=== PATIENT | male | born 1955 | race Caucasian/White ===

== ENCOUNTER 2018-03-02 12:02 | Inpatient (IN) ==
[2018-03-02] MEDS ORDERED: DILTIAZEM 125 MG in DEXTROSE 5% IN WATER 100 ML IV SCH (12:08)
[2018-03-02] MEDS ORDERED: DILTIAZEM 25 MG/5 ML VIAL IV ONE ×2 (12:08→12:35)
--- NOTE | 2018-03-02 12:15 | Emergency Department Note ---
Arrhythmia/Palpitations HPI - General Chief Complaint: Arrhythmia/Palpitations Stated Complaint: A-flutter Time Seen by Provider: 03/02/18 12:06 Source: patient Mode of arrival: ambulatory Limitations: no limitations - History of Present Illness HPI Narrative: Patient was having an intrathecal injection at the pain clinic for back pain when his heart rate was elevated at 155. Steroid injection was already given. When his heart rate increased. 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 Barroso who states that he read the EKG as A flutter.2:1 patient himself states he has had A. fib in the past but he is on no blood thinners or medications for it patient states he is having few symptoms but having some palpitations. Denies any chest pain. Denies shortness of breath. States that he had a history of what he calls A. fib over the past 2 years and was related somewhat to coffee intake he does not take any blood thinners is not on any aspirin daily.Temperature is 98.4 the pulse is 155 the respirations are 18 blood pressure 187/105 pulse ox is 96% on room air. Patient denying any chest pain - Related Data Home Medications Medication Instructions Recorded Confirmed Losartan [Cozaar] 100 mg PO QHS 02/15/18 02/15/18 amLODIPine [Norvasc] 5 mg PO DAILY 02/15/18 02/15/18 Previous Rx's Medication Instructions Recorded Cyclobenzaprine [Flexeril] 10 mg PO TID #20 tab 02/15/18 HYDROcodone/APAP 5/325MG [[place] 1 tab PO Q4HP PRN #20 tab 02/15/18 5-325Mg] Methocarbamol [Robaxin] 1,500 mg PO QIDP PRN 13 Days #84 02/23/18 tab Allergies Allergy/AdvReac Type Severity Reaction Status Date / Time No Known Drug Allergies Allergy Verified 03/02/18 12:07 Review of Systems All systems ED: reviewed and negative except as stated. Cardiovascular: Reports: as per HPI, palpitations. Denies: chest pain, dyspnea on exertion, orthopnea Respiratory: Denies: shortness of breath, cough Past Medical History - Past Medical History Medical history: Reports: hypertension, other (Rheumatic fever) Surgical history ED: Reports: other ([place] teeth) Family history: Reports: non-contributory - Social History smoking status: Never smoker Alcohol use: Reports: Occasionally (Wine) Drug use: Reports: none Physical Exam Limitations: no limitations General appearance: alert, anxious Head: atraumatic Eye: Present: normal appearance, PERRL ENT: normal exam, normal oropharynx, mucous membranes moist Neck: Present: normal inspection, full ROM. Absent: trachea midline Chest: Present: normal inspection, symmetric chest wall rise. Absent: tenderness Respiratory: Present: normal lung sounds bilaterally. Absent: respiratory distress, rales/crackles, wheezes Cardiovascular: Present: regular rate, normal rhythm, tachycardia Abdominal: Present: soft, normal bowel sounds. Absent: distention, tenderness, guarding, rebound, rigidity Extremities: Present: normal inspection, full ROM. Absent: tenderness Back: Present: normal inspection, full ROM. Absent: tenderness Neurological: Present: alert, oriented X3, CN II-XII intact Psychiatric: Present: normal affect, normal mood Course Vital Signs Temperature 98.4 F 03/02/18 12:03 Pulse Rate 155 H 03/02/18 12:03 Respiratory Rate 18 03/02/18 12:03 Blood Pressure 187/105 03/02/18 12:03 Pulse Oximetry (%) 96 03/02/18 12:03 Temperature 98.4 F 03/02/18 12:03 Pulse Rate 146 H 03/02/18 15:16 Respiratory Rate 20 03/02/18 15:16 Blood Pressure 119/87 03/02/18 15:16 Pulse Oximetry (%) 89 L 03/02/18 15:16 Arrhythmia/Palpitations - [facility] Narrative Medical decision making narrative: Sodium is 137 the potassium 4.5 CO2 is 20 glucose 107B fraction is less than 0.1 troponin less than 0.01 SH is 2.58 chest x-ray was normal EKG shows cardia and previous EKG shows atrial flutter 2-1 block. Patient not responsive Dital exam given 20 bolus initially with drip and then 25 mg along with the titration. And then given metoprolol x3 with some results of the heart rate going down to 120s but it is back up to the running in the 140s. Case was discussed with Dr. Barroso felt the patient to be admitted further slow the heart rate down to Dr. Meza contacted patient to be admitted - Lab Data Result diagrams: 03/02/18 12:43 12/12/18 12:35 Lab Results 03/02/1818 03/02/18 Range/Units 12:35 12:43 12:43 WBC 13.9 H (4.5-11.0) K/mcL RBC 4.66 (4.50-5.90) M/mcL Hgb 13.4 L (13.5-16.5) g/dL Hct 40.8 L (41.0-55.0) % POC Hct MCV 87.5 (80.0-100.0) fL MCH 28.7 (26.0-34.0) pg MCHC 32.8 (31.0-36.0) g/dL RDW 15.9 H (11.5-14.5) % Plt Count 588 H (140-440) K/mcL MPV 8.2 (7.4-10.4) fL Gran % 81.2 H (38.0-78.0) % Lymph % (Auto) 9.3 L (15.5-49.0) % [place] % (Auto) 8.3 (1.0-12.0) % Eos % (Auto) 0.5 (0.0-7.0) % Baso % (Auto) 0.7 (0.0-2.0) % Gran # 11.3 H (1.8-8.0) K/mcL Lymph # (Auto) 1.3 L (1.5-4.8) K/mcL [place] # (Auto) 1.2 H (0.1-0.9) K/mcL Eos # (Auto) 0.1 (0.0-0.7) K/mcL Baso # (Auto) 0.1 (0.0-0.3) K/mcL PT 14.5 (11.9-14.5) sec INR 1.1 (0.9-1.1) POC Sodium Sodium 137 (133-145) mmol/L POC Potassium Potassium 4.5 (3.3-5.1) mmol/L POC Chloride Chloride 99 (96-108) mmol/L Carbon Dioxide 20 L (22-30) mmol/L POC Total CO2 Anion Gap 18.0 H (8-16) POC BUN BUN 20 (8-23) mg/dl Creatinine 0.9 (0.7-1.2) mg/dl POC Creatinine GFR Calculation 91 Glucose 107 H (70-105) mg/dL POC Glucose Calcium 10.3 (8.6-10.4) mg/dl POC WB Ioniz Calcium Total Bilirubin 0.2 (0.0-1.0) mg/dL AST 15 (0-37) U/l ALT 29 (0-40) U/l Alkaline Phosphatase 79 (39-117) U/L Total Creatine Kinase (24-195) IU/L CK-MB (CK-2) (0-4.9) ng/ml Troponin T (0-0.03) ng/ml Total Protein 8.2 (5.9-8.4) gm/dL Albumin 3.8 (3.2-5.2) gm/dL Globulin 4.4 H (2.2-3.7) gm/dL Albumin/Globulin Ratio 0.9 L (1.0-2.3) TSH (0.27-5.01) uIU/ml 03/02/18 03/02/18 03/02/18 Range/Units 12:43 12:43 12:43 WBC (4.5-11.0) K/mcL RBC (4.50-5.90) M/mcL Hgb (13.5-16.5) g/dL Hct (41.0-55.0) % POC Hct TNP MCV (80.0-100.0) fL MCH (26.0-34.0) pg MCHC (31.0-36.0) g/dL RDW (11.5-14.5) % Plt Count (140-440) K/mcL MPV (7.4-10.4) fL Gran % (38.0-78.0) % Lymph % (Auto) (15.5-49.0) % [place] % (Auto) (1.0-12.0) % Eos % (Auto) (0.0-7.0) % Baso % (Auto) (0.0-2.0) % Gran # (1.8-8.0) K/mcL Lymph # (Auto) (1.5-4.8) K/mcL [place] # (Auto) (0.1-0.9) K/mcL Eos # (Auto) (0.0-0.7) K/mcL Baso # (Auto) (0.0-0.3) K/mcL PT (11.9-14.5) sec INR (0.9-1.1) POC Sodium TNP Sodium (133-145) mmol/L POC Potassium TNP Potassium (3.3-5.1) mmol/L POC Chloride TNP Chloride (96-108) mmol/L Carbon Dioxide (22-30) mmol/L POC Total CO2 TNP Anion Gap (8-16) POC BUN TNP BUN (8-23) mg/dl Creatinine (0.7-1.2) mg/dl POC Creatinine TNP GFR Calculation Glucose (70-105) mg/dL POC Glucose TNP Calcium (8.6-10.4) mg/dl POC WB Ioniz Calcium TNP Total Bilirubin (0.0-1.0) mg/dL AST (0-37) U/l ALT (0-40) U/l Alkaline Phosphatase (39-117) U/L Total Creatine Kinase 63 (24-195) IU/L CK-MB (CK-2) < 1.0 (0-4.9) ng/ml Troponin T < 0.01 (0-0.03) ng/ml Total Protein (5.9-8.4) gm/dL Albumin (3.2-5.2) gm/dL Globulin (2.2-3.7) gm/dL Albumin/Globulin Ratio (1.0-2.3) TSH 2.58 (0.27-5.01) uIU/ml Disposition Pt seen by [facility] [facility]/PA only: No Clinical Impression: Atrial flutter Qualifiers: Atrial flutter type: typical Qualified Code(s): I48.3 - Typical atrial flutter Disposition: Xfer As Inpt ([facility]) Condition: Fair
[2018-03-02 13:03] LABS: Basophils # (Auto) 0.1 K/mcL (0.0-0.3); Basophils % (Auto) 0.7 % (0.0-2.0); Eosinophils # (Auto) 0.1 K/mcL (0.0-0.7); Eosinophils % (Auto) 0.5 % (0.0-7.0); Granulocytes % (Auto) 81.2 % (38.0-78.0); Lymphocytes # (Auto) 1.3 K/mcL (1.5-4.8); Lymphocytes % (Auto) 9.3 % (15.5-49.0); Mean Cell Volume 87.5 fL (80.0-100.0); Mean Corpuscular HGB Conc 32.8 g/dL (31.0-36.0); Mean Corpuscular Hemoglobin 28.7 pg (26.0-34.0); Monocytes # (Auto) 1.2 K/mcL (0.1-0.9); Monocytes % (Auto) 8.3 % (1.0-12.0); Platelet Count 588 K/mcL (140-440); RBC 4.66 M/mcL (4.50-5.90); Red Cell Distribution Width 15.9 % (11.5-14.5)
--- NOTE | 2018-03-02 13:18 | XRay Report ---
CLINICAL INFORMATION: dysrhythmia COMPARISON: None. FINDINGS: The heart size, mediastinum and pulmonary vessels are unremarkable. The lungs are clear. There are no effusions. The bones and soft tissues are within normal limits. IMPRESSION: Normal chest. Interpreted and Authenticated by: Billy Glass 03/02/18
[2018-03-02] MEDS: METOPROLOL TARTRATE 5 MG/5 ML VIAL IV SCH ×6 (13:27→21:30)
[2018-03-02 13:40] LABS: Creatine Kinase 63 IU/L (24-195); Creatine Kinase MB < 1.0 ng/ml (0-4.9)
[2018-03-02 15:20] LABS: ALT/SGPT 29 U/l (0-40); Albumin 3.8 gm/dL (3.2-5.2); Albumin/Globulin Ratio 0.9 (1.0-2.3); Alkaline Phosphatase 79 U/L (39-117); Blood Urea Nitrogen 20 mg/dl (8-23)
--- NOTE | 2018-03-02 16:20 | Internal Med History&Physical ---
Medical - H&P: HPI Patient information: Note initiated : 03/02/18 at 4:15 pm Service Date, if different from initiated Date: [] Patient: Billy Bland 62 y/o M admitted on for A-Flutter. Chief Complaint: [] History of present illness: Mr. Bland is a 62 year old M with h/o HTN, was seen in the pain clinic today for steroid injection, due to acute back pain. The patient notes that he presented to the pain clinic today for a steroid injection in the back, on presentation his heart rate was noted to be elevated around 155 it was thought that this was secondary to anxiety as well as pain. Patient underwent a steroid injection and in the post procedure monitoring his heart rate was also noted to be elevated he was sent to the ER for further evaluation. He had an EKG done according to the ER provider was reviewed by Dr. Barroso and interpreted as atrial flutter with 2 is 2 1 conduction. The patient denies any acute complaints or concerns. The patient denies any chest pain shortness of breath palpitations dizziness nausea vomiting any bowel or bladder complaints. He has never been diagnosed with an irregular heartbeat before, however a few months ago in the morning after drinking coffee he did note some palpitations. The patient follows up with Dr. Barroso, he has a history of rheumatic heart disease and hypertension as per him. In the emergency room on presentation patient was afebrile temperature 98.4, heart rate 155 blood pressure 187 x 105 respirations 18 saturating 96% on room air. By the time of my evaluation patient was still tachycardic but a bit hypoxic with oxygen saturation anywhere between 90-93% on room air. EKG shows atrial flutter with 2-1 conduction. Chest x-ray was interpreted as negative. Labs show some leukocytosis WBC 13.9 hemoglobin 13 platelets 588. Sodium 137 potassium 4.5 bicarbonate 20 magnesium 2.6 creatinine 0.9 troponin is 0.01 TSH is 2.68 normal. Patient had an echocardiogram done in April 2017 which showed normal left ventricular function. According to the patient is also had a stress test done this year which is normal. All systems: reviewed and no additional remarkable complaints except as stated ( as per HPI rest negative.) Medical - H&P: PMH Medical history: HTN h/o rheumatic fever Surgical history: no major surgery Family history: reviewed and not pertinent Social history: non smoker daily etoh 2-3 glasses of wine, no drinks since back pain (2 weeks) denies recreational substance use. Medical - H&P: Meds Home Medications Medication Instructions Recorded Confirmed Type amLODIPine [Norvasc] 5 mg PO DAILY 02/15/18 03/02/18 History Acetaminophen [Tylenol] 325 mg PO Q4HP PRN 03/02/18 03/02/18 History Losartan [Cozaar] 25 mg PO DAILY 03/02/18 03/02/18 History Naproxen (Pp) [Aleve 220Mg (Pp)] 220 mg PO Q6 03/02/18 03/02/18 History traMADol [Ultram] 50 - 100 mg PO Q4HP PRN 03/02/18 03/02/18 History Allergies Allergy/AdvReac Type Severity Reaction Status Date / Time No Known Drug Allergies Allergy Verified 03/02/18 12:07 Medical - H&P: Exam - Constitutional Vitals: Temp Pulse Resp BP Pulse Ox 98.4 F 148 H 31 H 140/90 92 03/02/18 12:03 03/02/18 16:01 03/02/18 16:01 03/02/18 16:01 03/02/18 16:01 Exam: GENERAL: The patient is a well-developed, well-nourished in no apparent distress. Is alert and oriented x3. VITAL SIGNS: Reviewed and as noted elsewhere. HEENT: Head is normocephalic and atraumatic. Extraocular muscles are intact. Pupils are equal, round, and reactive to light. Nares appeared normal. Mouth appears any without lesions. Mucous membranes are moist. NECK: Normal to inspection, Supple, No lymphadenopathy or thyromegaly. LUNGS: Air entry equal on both sides, no wheezing, crackles or rhonchi noted. No accessory muscles of respiration HEART: Regular but tachcardic rate and rhythm normal, S1 and S2 heard, no Gallop , S3 or Rub Noted, No Gross murmur heard. ABDOMEN: Soft, nontender, and nondistended. Positive bowel sounds. No hepatosplenomegaly was noted. EXTREMITIES: No cyanosis, clubbing, rash, lesions or edema. NEUROLOGIC: Cranial nerves II through XII are grossly intact. Motor and Sensory System Grossly Intact PSYCHIATRIC: Normal affect, Normal Mood. Appropriate Behavior. SKIN: No ulceration or wounds noted, No jaundice, No rash noted. Medical - H&P: Reslt - Labs CBC & Chem 7: 03/02/18 12:43 03/02/18 12:35 Labs: Short CBC 03/02/18 Range/Units 12:43 WBC 13.9 H (4.5-11.0) K/mcL Hgb 13.4 L (13.5-16.5) g/dL Hct 40.8 L (41.0-55.0) % Plt Count 588 H (140-440) K/mcL BMP 03/02/18 12:35 Sodium 137 Potassium 4.5 Chloride 99 Carbon Dioxide 20 L BUN 20 Creatinine 0.9 Glucose 107 H Calcium 10.3 Cardiac Enzymes 03/02/18 03/02/18 Range/Units 12:43 12:43 Total Creatine Kinase 63 (24-195) IU/L CK-MB (CK-2) < 1.0 (0-4.9) ng/ml Troponin T < 0.01 (0-0.03) ng/ml Liver Function 03/02/18 Range/Units 12:35 Total Bilirubin 0.2 (0.0-1.0) mg/dL AST 15 (0-37) U/l ALT 29 (0-40) U/l Alkaline Phosphatase 79 (39-117) U/L Albumin 3.8 (3.2-5.2) gm/dL Medical - H&P: A/P - Narrative A/P Narrative: A/P Atrial Flutter with RVR: 2:1 conduction, On cardizem drip, will uptitrate to response. Start on oral cardizem, and use prn IV metoprolol if needed to control heart rate. If bp drops will have to consider digoxin to see if this helps with rate control. Etiology? precipitating factor? acute pain? reaction to pain meds? IV saline bolus x 1 to be given check d dimer, if high will get CTA to r/o PE HTN- On amlodipine and losartan, will hold for now, Back pain- could be contributing to rate, aggressive pain management. DVT hep sq Diet Regular Full code.
[2018-03-02] MEDS ORDERED: ACETAMINOPHEN 325 MG TABLET PO PRN (16:53)
[2018-03-02] MEDS ORDERED: NALOXONE HCL 0.4 MG/ML VIAL IV PRN (16:53)
[2018-03-02] MEDS ORDERED: 0.9 % SODIUM CHLORIDE 1,000 ML IV ONE (16:53)
[2018-03-02] MEDS ORDERED: ONDANSETRON 4 MG/2 ML VIAL IV PRN (16:53)
[2018-03-02] MEDS: DILTIAZEM 30 MG TABLET PO SCH ×2 (17:26→22:57)
[2018-03-02] MEDS ORDERED: IOPAMIDOL 100 ML BOTTLE IV ONE (18:08)
--- NOTE | 2018-03-02 18:26 | Cat Scan Report ---
CLINICAL INFORMATION: Chest pain COMPARISON: None. TECHNIQUE: 80 cc of Isovue-300 were injected intravenously. Using SmartPrep to maximize pulmonary artery opacification, 2.5 mm helical slices were obtained from the lung apices through the lung bases. Following reconstruction, 2.5 mm sagittal, coronal, and axial reformations were processed. The exam was reviewed at mediastinal, lung, and bone windows. The exam was performed using radiation dose optimization techniques including, but not limited to, automated exposure control, adjustment of the mA and/or kV according to patient size and use of iterative reconstruction technique. FINDINGS: The pulmonary arteries are normal in contour and caliber well opacified - no evidence of embolus. The thoracic aorta shows mild diffuse intimal thickening and is normal in caliber. There is no adenopathy in the mediastinal, hilar or axillary region. Heart is normal in size and configuration. Very heavy fibrofatty calcific plaque is present within the proximal and mid LAD: suspect either occlusion or subocclusive stenoses in this segment. Scattered atherosclerotic plaque seen in the remaining coronary arteries. Esophagus is grossly normal. Thyroid shows no abnormality. Pulmonary parenchymal windows show mild elevation in the lung volumes and slight wall thickening of bronchi suggesting chronic bronchitis or asthma. There is minimal atelectasis in both posterior lower lobes. Scattered small well-circumscribed pleural-based nodules in the periphery of both lungs are all less than 4.5 mm and compatible with benign subpulmonic lymph nodes. There are no effusions. Bones and soft tissues of the chest wall show only degenerative changes in the thoracic spine. Images through the superior abdomen show no abnormality IMPRESSION: 1. Pulmonary arteries are unremarkable - no evidence of pulmonary embolus 2. Mild chronic bronchitis 3. Heavy fibrofatty and calcific plaque in the proximal/mid LAD coronary artery suspicious for occlusive or subocclusive stenosis. Consider cardiology referral for stress testing Interpreted and Authenticated by: Billy Glass 03/02/18
[2018-03-02 19:02] LABS: Appearance,Urine CLOUDY; Bacteria,Urine 0 /hpf (0); Bilirubin,Urine NEG (NEG); Color,Urine YELLOW; Glucose,Urine (UA) NEGATIVE (NEG); Leukocyte Esterase,Urine NEG /uL (NEG); Mucus,Urine FEW /hpf (0); Protein,Urine NEG (NEG); Specific Gravity,Urine 1.023 (1.000-1.035); Urine Amorphous Crystals MANY /hpf (0); Urine Blood NEG mg/dL (<0.03); Urine Hyaline Cast 7 /lpf (0-2); Urine RBC 1 /hpf (0-1); Urine Squamous Epithelial Cell < 1 /hpf (0-4); Urine WBC 0 /hpf (0-4); Urobilinogen,Urine NEG (NEG)
[2018-03-02] MEDS ORDERED: METOPROLOL TARTRATE 5 MG/5 ML VIAL IV ONE (19:23)
[2018-03-02] MEDS: 0.9 % SODIUM CHLORIDE 10 ML SYRINGE IV SCH (21:30)
[2018-03-02] MEDS: HEPARIN 5,000 UNIT/ML VIAL SQ SCH (21:30)
[2018-03-02] MEDS: DILTIAZEM 125 MG in DEXTROSE 5% IN WATER 100 ML IV SCH (21:34)
[2018-03-02] MEDS: oxyCODONE/APAP 5/325MG TABLET PO PRN (21:35)
[2018-03-03] MEDS ORDERED: METOPROLOL TARTRATE 5 MG/5 ML VIAL IV ONE ×2 (04:37→08:48)
[2018-03-03] MEDS: METOPROLOL TARTRATE 5 MG/5 ML VIAL IV SCH ×3 (04:41→08:50)
[2018-03-03] MEDS: 0.9 % SODIUM CHLORIDE 10 ML SYRINGE IV SCH ×3 (05:27→20:33)
[2018-03-03] MEDS: DILTIAZEM 30 MG TABLET PO SCH ×4 (05:27→23:50)
[2018-03-03 06:05] LABS: Basophils # (Auto) 0 K/mcL (0.0-0.3); Basophils % (Auto) 0.1 % (0.0-2.0); Eosinophils # (Auto) 0 K/mcL (0.0-0.7); Eosinophils % (Auto) 0 % (0.0-7.0); Granulocytes % (Auto) 85.5 % (38.0-78.0); Lymphocytes % (Auto) 8.8 % (15.5-49.0); Mean Cell Volume 87.6 fL (80.0-100.0); Mean Corpuscular HGB Conc 32.8 g/dL (31.0-36.0); Mean Corpuscular Hemoglobin 28.8 pg (26.0-34.0); Monocytes # (Auto) 0.6 K/mcL (0.1-0.9); Monocytes % (Auto) 5.6 % (1.0-12.0); Platelet Count 581 K/mcL (140-440); RBC 4.16 M/mcL (4.50-5.90); Red Cell Distribution Width 16.1 % (11.5-14.5)
[2018-03-03 06:33] LABS: ALT/SGPT 23 U/l (0-40); Albumin 3.5 gm/dL (3.2-5.2); Albumin/Globulin Ratio 0.9 (1.0-2.3); Alkaline Phosphatase 65 U/L (39-117); Bilirubin,Direct < 0.2 mg/dL (0.0-0.3); Blood Urea Nitrogen 21 mg/dl (8-23); Gamma Glutamyl Transpeptidase 34 U/L (8-61); Uric Acid 4.3 mg/dL (2.5-8.0)
[2018-03-03] MEDS: DILTIAZEM 125 MG in DEXTROSE 5% IN WATER 100 ML IV SCH ×5 (06:37→23:58)
[2018-03-03] MEDS ORDERED: DILTIAZEM 125 MG/25 ML VIAL IV ONE (06:48)
[2018-03-03] MEDS ORDERED: METOPROLOL TARTRATE 25 MG TABLET PO SCH (09:00)
[2018-03-03] MEDS: HEPARIN 5,000 UNIT/ML VIAL SQ SCH ×2 (09:08→20:33)
[2018-03-03] MEDS: HYDROmorphone 2 MG/ML VIAL IV PRN (11:05)
[2018-03-03] MEDS: oxyCODONE/APAP 5/325MG TABLET PO PRN ×3 (11:12→20:32)
--- NOTE | 2018-03-03 11:40 | Internal Med Progress Note ---
Medical - PN: Subj Patient information: Note initiated : 03/03/18 at 11:38 am Service Date, if different from initiated Date: [] Patient: Billy Bland 62 y/o M admitted on 03/02/18 for A-Flutter. Chief Complaint: [] Interval history: Mr. Bland is a 62 year old M with h/o HTN, was seen in the pain clinic today for steroid injection, due to acute back pain. The patient notes that he presented to the pain clinic today for a steroid injection in the back, on presentation his heart rate was noted to be elevated around 155 it was thought that this was secondary to anxiety as well as pain. Patient underwent a steroid injection and in the post procedure monitoring his heart rate was also noted to be elevated he was sent to the ER for further evaluation. He had an EKG done according to the ER provider was reviewed by Dr. Barroso and interpreted as atrial flutter with 2 is 2 1 conduction. The patient denies any acute complaints or concerns. The patient denies any chest pain shortness of breath palpitations dizziness nausea vomiting any bowel or bladder complaints. He has never been diagnosed with an irregular heartbeat before, however a few months ago in the morning after drinking coffee he did note some palpitations. The patient follows up with Dr. Barroso, he has a history of rheumatic heart disease and hypertension as per him. In the emergency room on presentation patient was afebrile temperature 98.4, heart rate 155 blood pressure 187 x 105 respirations 18 saturating 96% on room air. By the time of my evaluation patient was still tachycardic but a bit hypoxic with oxygen saturation anywhere between 90-93% on room air. EKG shows atrial flutter with 2-1 conduction. Chest x-ray was interpreted as negative. Labs show some leukocytosis WBC 13.9 hemoglobin 13 platelets 588. Sodium 137 potassium 4.5 bicarbonate 20 magnesium 2.6 creatinine 0.9 troponin is 0.01 TSH is 2.68 normal. Patient had an echocardiogram done in April 2017 which showed normal left ventricular function. According to the patient is also had a stress test done this year which is normal. 03/03 Patient seen examined, no acute overnight issues rate intermittent afib and flutter rate still uncontrolled, increase cardizem to 60 q6hr start on po metoprolol 25mg bid for now, pt not very happy with beta blockers as it causes fatigue. Willing to try for short duration til ablation is considered. i Pertinent ROS: Denies headache, dizziness Denies chest pain, palpitations Denies cough or shortness of breath Denies abdominal pain, nausea or vomiting. - Constitutional Vitals: Vital Signs Temp Pulse Resp BP Pulse Ox 98.8 F 152 H 18 128/83 94 03/03/18 08:05 03/02/18 17:08 03/03/18 11:01 03/03/18 11:01 03/03/18 08:05 Period Temp Pulse Resp BP Sys/Temple Pulse Ox Last 24 Hr 98.4 F-99.6 F 95-157 16-31 106-187/57-132 89-97 Intake and Output 03/02/18 03/03/18 03/03/18 21:59 05:59 13:59 Intake Total 1335 / 1335 709 / 709 429 / 429 Output Total 750 / 750 500 / 500 150 / 150 Balance 585 / 585 209 / 209 279 / 279 Weight 250 lb 9.6 oz Intake & Output: Intake & Output 03/02/18 03/03/18 03/03/18 21:59 05:59 13:59 Intake Total 1335 / 1335 709 / 709 429 / 429 Output Total 750 / 750 500 / 500 150 / 150 Balance 585 / 585 209 / 209 279 / 279 Weight 250 lb 9.6 oz Intake: IV 1035 / 1035 49 / 49 189 / 189 Cardizem 125 mg In Dextrose 5% 35 / 35 49 / 49 100 / 100 in Water 100 ml @ 5 MG/HR 5 mls /hr IV Q8H [facility] Rx#:[id number] Oral 300 / 300 660 / 660 240 / 240 Output: Void Amount 750 / 750 500 / 500 150 / 150 Other: Meal Dinner Breakfast Percent of Meal Consumed 75% 75% Feeding Ability Independent Independent Urine Appearance Clear Clear Urine Color Bright Yellow Bright Yellow Urine Odor Normal Exam: Constitutional; Afebrile, cooperative, alert, not in distress. Respiratory system: Air Entry equal on both sides, No crackles or wheezing, no rhonchi. CVS- Rate tachyucardic, rhythm irregular, S1,S2 heard, no gallop, no rub. 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 Medical - PN: Obj Da - Labs CBC & Chem 7: 03/03/18 04:05 03/03/18 04:05 Labs: Abnormal Lab Results 03/03/18 03/03/18 03/02/18 04:05 04:05 18:05 WBC RBC 4.16 L Hgb 12.0 L Hct 36.4 L RDW 16.1 H Plt Count 581 H Gran % 85.5 H Lymph % (Auto) 8.8 L Gran # 9.4 H Lymph # (Auto) 1.0 L [place] # (Auto) D-Dimer Carbon Dioxide 20 L Anion Gap Glucose 117 H Magnesium Globulin Albumin/Globulin Ratio 0.9 L Amorphous Crystals Many A Hyaline Casts 7 H 03/02/18 03/02/18 03/02/18 15:47 15:27 12:43 WBC 13.9 H RBC Hgb 13.4 L Hct 40.8 L RDW 15.9 H Plt Count 588 H Gran % 81.2 H Lymph % (Auto) 9.3 L Gran # 11.3 H Lymph # (Auto) 1.3 L [place] # (Auto) 1.2 H D-Dimer 3.60 H Carbon Dioxide Anion Gap Glucose Magnesium 2.6 H Globulin Albumin/Globulin Ratio Amorphous Crystals Hyaline Casts 03/02/18 12:35 WBC RBC Hgb Hct RDW Plt Count Gran % Lymph % (Auto) Gran # Lymph # (Auto) [place] # (Auto) D-Dimer Carbon Dioxide 20 L Anion Gap 18.0 H Glucose 107 H Magnesium Globulin 4.4 H Albumin/Globulin Ratio 0.9 L Amorphous Crystals Hyaline Casts Meds: Medications Acetaminophen (Tylenol) 650 mg PO Q6HP PRN PRN Reason: PAIN/FEVER > 101 Diltiazem HCl (Cardizem) 60 mg PO Q6 JOSE Heparin Sodium (Porcine) (Heparin) 5,000 unit SQ Q12 JOSE Last Admin: 03/03/18 09:08 Dose: 5,000 unit Hydromorphone HCl (Dilaudid) 0.5 mg IV Q2HP PRN PRN Reason: PAIN LEVEL > 6 Last Admin: 03/03/18 11:05 Dose: 0.5 mg Diltiazem HCl 125 mg/ Dextrose 125 mls @ 5 mls/hr IV Q8H JOSE; Protocol Last Titration: 03/03/18 10:53 Dose: 5 mg/hr, 5 mls/hr Metoprolol Tartrate (Lopressor) 25 mg PO BID JOSE Last Admin: 03/03/18 09:08 Dose: 25 mg Naloxone HCl (Narcan) 0.1 mg IV Q2MIN PRN PRN Reason: Opiate Reversal Ondansetron HCl (Zofran) 4 mg IV Q4HP PRN PRN Reason: Nausea And Vomiting Oxycodone/Acetaminophen (Percocet 5-325 Mg) 1 tab PO Q4HP PRN PRN Reason: PAIN LEVEL 3-6 Last Admin: 03/03/18 11:12 Dose: 1 tab Sodium Chloride (Saline Flush) 10 ml IV Q8 JOSE Last Admin: 03/03/18 05:27 Dose: 10 ml Medical - PN: A/P - Time Spent With Patient Total time spent is greater than 50% in coordination of care (as documented) at patient's floor/unit and/or counseling patient: - Narrative A/P Narrative: A/P Atrial Flutter with RVR: now is intermittently in afib, on cardizem drip, oral caridzem and po metoprolol, does repsond to Iv metoprolol, will consider amiodarone if needed. HTN- On amlodipine and losartan, will hold for now, Back pain- could be contributing to rate, aggressive pain management. DVT hep sq Diet Regular Full code. Medical - PN: Qual - Stroke Symptom Onset Unknown: No - VTE Deep Vein Thrombosis/Pulmonary Embolism Present on Admission: No
[2018-03-03] MEDS ORDERED: METOPROLOL TARTRATE 25 MG TABLET PO ONE (14:50)
[2018-03-03] MEDS: METOPROLOL TARTRATE 50 MG TABLET PO SCH (20:32)
[2018-03-04] MEDS: DILTIAZEM 30 MG TABLET PO SCH ×2 (05:26→11:11)
[2018-03-04] MEDS: 0.9 % SODIUM CHLORIDE 10 ML SYRINGE IV SCH (05:26)
[2018-03-04] MEDS: oxyCODONE/APAP 5/325MG TABLET PO PRN ×2 (05:54→10:44)
[2018-03-04 06:33] LABS: Basophils # (Auto) 0 K/mcL (0.0-0.3); Basophils % (Auto) 0.4 % (0.0-2.0); Eosinophils # (Auto) 0.1 K/mcL (0.0-0.7); Eosinophils % (Auto) 0.4 % (0.0-7.0); Granulocytes % (Auto) 77.2 % (38.0-78.0); Lymphocytes # (Auto) 1.6 K/mcL (1.5-4.8); Lymphocytes % (Auto) 14.2 % (15.5-49.0); Mean Corpuscular HGB Conc 32.8 g/dL (31.0-36.0); Mean Corpuscular Hemoglobin 28.8 pg (26.0-34.0); Monocytes # (Auto) 0.9 K/mcL (0.1-0.9); Monocytes % (Auto) 7.8 % (1.0-12.0); Platelet Count 496 K/mcL (140-440); RBC 3.85 M/mcL (4.50-5.90); Red Cell Distribution Width 15.9 % (11.5-14.5)
[2018-03-04 07:02] LABS: ALT/SGPT 35 U/l (0-40); Albumin 3.4 gm/dL (3.2-5.2); Albumin/Globulin Ratio 0.9 (1.0-2.3); Alkaline Phosphatase 67 U/L (39-117); Bilirubin,Direct < 0.2 mg/dL (0.0-0.3); Blood Urea Nitrogen 25 mg/dl (8-23); Gamma Glutamyl Transpeptidase 41 U/L (8-61); Uric Acid 4.7 mg/dL (2.5-8.0)
[2018-03-04] MEDS: DILTIAZEM 125 MG in DEXTROSE 5% IN WATER 100 ML IV SCH (08:38)
[2018-03-04] MEDS: METOPROLOL TARTRATE 50 MG TABLET PO SCH (08:39)
[2018-03-04] MEDS: HYDROmorphone 2 MG/ML VIAL IV PRN ×2 (08:44→11:11)
[2018-03-04] MEDS: HEPARIN 5,000 UNIT/ML VIAL SQ SCH (08:51)
--- NOTE | 2018-03-04 10:35 | Discharge Summary ---
Medical - DS: Prov Patient information: Note initiated : 03/04/18 at 10:30 am Service Date, if different from initiated Date: [] Patient: Billy Bland 62 y/o M admitted on 03/02/18 for A-Flutter. Chief Complaint: [] Date of admission: 03/02/18 16:45 Discharge date: 03/04/18 Consults: 03/02/18 15:11 Consult to Physician [CONS] Stat Comment: Consulting Provider: Juan Barroso Reason For Exam: Physician to Consult 03/02/18 15:23 Consult to Physician [CONS] Stat Comment: Consulting Provider: Rocio Meza Reason For Exam: Physician to Consult Discharging clinician: Rocio Meza Medical - DS: Meds - Discharge Medications Prescriptions: Amiodarone HCl [Cordarone] 200 mg PO BIDCC #90 tab Diltiazem HCl [Diltiazem 24Hr Cd] 120 mg PO DAILY #90 cap.er.24h Active and Home Medications: Home Medications amLODIPine [Norvasc] 5 mg PO DAILY 02/15/18 [History Confirmed 03/02/18 Last Taken Unknown] Acetaminophen [Tylenol] 325 mg PO Q4HP PRN 03/02/18 [History Confirmed 03/02/18 Last Taken Unknown] Losartan [Cozaar] 25 mg PO DAILY 03/02/18 [History Confirmed 03/02/18 Last Taken Unknown] Naproxen (Pp) [Aleve 220Mg (Pp)] 220 mg PO Q6 03/02/18 [History Confirmed Last Taken Unknown] traMADol [Ultram] 50 - 100 mg PO Q4HP PRN 03/02/18 [History Confirmed 03/02/18 Last Taken Unknown] Medical - DS: Hosp Hospital course: Mr. Bland is a 62 year old M with h/o HTN, was seen in the pain clinic for steroid injection, due to acute back pain. The patient notes that he presented to the pain clinic for a steroid injection in the back, on presentation his heart rate was noted to be elevated around 155 it was thought that this was secondary to anxiety as well as pain. Patient underwent a steroid injection and in the post procedure monitoring his heart rate was also noted to be elevated he was sent to the ER for further evaluation. He had an EKG done according to the ER provider was reviewed by Dr. Barroso and interpreted as atrial flutter with 2 is 2 1 conduction. The patient denies any acute complaints or concerns. The patient denies any chest pain shortness of breath palpitations dizziness nausea vomiting any bowel or bladder complaints. He has never been diagnosed with an irregular heartbeat before, however a few months ago in the morning after drinking coffee he did note some palpitations. The patient follows up with Dr. Barroso, he has a history of rheumatic heart disease and hypertension as per him. In the emergency room on presentation patient was afebrile temperature 98.4, heart rate 155 blood pressure 187 x 105 respirations 18 saturating 96% on room air. By the time of my evaluation patient was still tachycardic but a bit hypoxic with oxygen saturation anywhere between 90-93% on room air. EKG shows atrial flutter with 2-1 conduction. Chest x-ray was interpreted as negative. Labs show some leukocytosis WBC 13.9 hemoglobin 13 platelets 588. Sodium 137 potassium 4.5 bicarbonate 20 magnesium 2.6 creatinine 0.9 troponin is 0.01 TSH is 2.68 normal. Patient had an echocardiogram done in April 2017 which showed normal left ventricular function. According to the patient is also had a stress test done this year which is normal. Atrial Flutter/ Intermittent Fib- Patient had Atrial flutter ith 2:1 conduction , was admitted to tele for further management. Patient was on a cardizem drip, then swtichted to oral cardizem and oral metoprolol. Patient however converted to sinus rhythm on day 3 of hospital stay. He remained in sinus till the time of discharge. I reviewed the case with Dr Barroso his primary recreation leader, who advised to start pt on amiodarone 200mg bid x 2 weeks and then 200mg daily. Also advised to start on low dose of rate control medication. Patient reports significant side effects to beta blockers hence we are using a low dose cardizem 120mg daily. [id number] score is 1 Advised to start on ASA 81mg at this time. Patient had a CTA to r/o PE done during this hospital stay, it did not show PE, but did show Heavy fibrofatty and calcific plaque in the proximal/mid LAD coronary artery suspicious for occlusive or subocclusive stenosis. Its my understanding that the patient has had a stress test this year, I have advised to start ASA, which will help with aflutter related anticoagulation as well as antiplatelt effect for coronary artery disease. he will need to follow up with his PCP/ed teacher for lipid management. The rest of the stay in the hospital is uneventful. Discharge diagnosis: Aflutter/Atrial fibrillation. - Time Spent with Patient Total time spent providing and/or coordinating discharge services: Greater than 30 minutes Medical - DS: Exam - Constitutional Vitals: Vital Signs Temp Resp BP BP Pulse Ox 03/04/18 08:25 178/110 03/04/18 08:00 98.6 F 20 152/76 93 03/04/18 03:42 98.9 F 16 137/77 99 03/03/18 23:56 99.0 F 16 121/78 96 03/03/18 20:01 99.9 F H 18 147/74 94 03/03/18 16:59 149/86 03/03/18 16:00 99.1 F H 03/03/18 15:53 99.1 F H 18 132/99 94 03/03/18 14:16 99.1 F H 18 120/88 94 03/03/18 12:01 98.1 F 18 127/89 93 03/03/18 12:00 98.9 F 18 127/89 94 03/03/18 11:01 18 128/83 Intake and Output 03/03/18 03/04/18 03/04/18 21:59 05:59 13:59 Intake Total 240 / 240 180 / 180 Output Total 635 / 635 725 / 725 Balance -395 / -395 -545 / -545 Intake: IV 0 / 0 Cardizem 125 mg In Dextrose 5% 0 / 0 in Water 100 ml @ 5 MG/HR 5 mls /hr IV Q8H [facility] Rx#:[id number] Oral 240 / 240 180 / 180 Output: Urine Catheter Amount 250 / 250 Void Amount 635 / 635 475 / 475 Other: Meal Dinner Percent of Meal Consumed 100% Feeding Ability Independent Urine Appearance Clear Clear Clear Urine Color Bright Yellow Bright Yellow Dark Yellow Urine Odor Normal Normal # Voids 1 Weight 252 lb 4.8 oz Additional comments: Constitutional; Afebrile, cooperative, alert, not in distress. Eyes- No icterus, , No periorbital swelling Ears- Ext ear normal, hearing normal to conversation. Neck- Midline trachea, supple Respiratory system: Air Entry equal on both sides, No crackles or wheezing, no rhonchi. CVS- Rate rhythm regular, S1,S2 heard, no gallop, no rub. Abdomen- Soft nontender abdomen, no organomegaly, no tenderness, no guarding or rigidity, [employer]- AOOx3, moving all extremities, no gross focal deficit noted. Medical - DS: Data Labs on day of discharge: Labs from last 24 hours 03/04/18 03/04/18 03:40 03:40 WBC 11.3 H RBC 3.85 L Hgb 11.1 L Hct 33.8 L MCV 88.0 MCH 28.8 MCHC 32.8 RDW 15.9 H Plt Count 496 H MPV 8.1 Gran % 77.2 Lymph % (Auto) 14.2 L [place] % (Auto) 7.8 Eos % (Auto) 0.4 Baso % (Auto) 0.4 Gran # 8.7 H Lymph # (Auto) 1.6 [place] # (Auto) 0.9 Eos # (Auto) 0.1 Baso # (Auto) 0 Sodium 135 Potassium 4.1 Chloride 100 Carbon Dioxide 23 Anion Gap 12.0 BUN 25 H Creatinine 0.9 GFR Calculation 91 Glucose 86 Uric Acid 4.7 Calcium 9.5 Phosphorus 3.0 Magnesium 2.1 Total Bilirubin 0.3 Direct Bilirubin < 0.2 GGT 41 AST 18 ALT 35 Alkaline Phosphatase 67 Lactate Dehydrogenase 144 Total Protein 7.0 Albumin 3.4 Globulin 3.6 Albumin/Globulin Ratio 0.9 L Triglycerides 75 Medical - DS: A/P - Patient/Caregiver Discharge Instructions Activity: increase activity as tolerated Diet: Cardiac Additional Instructions: Please take amiodarone 200 mg twice daily for 2 weeks then 200 mg once a day. Stop taking amlodipine Start taking diltiazem 120 mg once a day. Start taking aspirin 81 mg once a day enteric-coated take this medication with food. Talk to your primary care provider-recreation leader regarding statin drug therapy to lower your risk of cardiovascular complications in the future. Follow-up with Dr. Zheng your recreation leader in 2 weeks. He will refer you for an EP procedure. Go to the emergency room if palpitations chest pain shortness of breath or any other acute concerning symptoms. Follow-up with the pain clinic as previously scheduled - Follow up Plan Follow up with: Juan Barroso MD [Physician] - 03/25/18 1:30 pm (Please check in at 1:15 pm) Disposition: Home, Self-Care Prognosis: Fair Rehab Potential: Fair I certify that the patient requires SNF services: No Overall status at discharge: patient is progressing back to baseline Medical - DS: Qual - VTE Deep Vein Thrombosis/Pulmonary Embolism Present on Admission: No
== END 2018-03-04 12:53 | disposition home or self-care (01) | DRG 310 ==
LOC: ED 12:02 → ICU 16:35
PROVIDERS: ADMIT Internal Medicine; ATTEND Internal Medicine
CPT/HCPCS: 80047; 84145; 85014; 97161; 97167; J1170; J1644; J7030; J7060; Q9967

== ENCOUNTER 2018-03-09 09:10 | Observation (INO) ==
[2018-03-09] MEDS ORDERED: DILTIAZEM 25 MG/5 ML VIAL IV ONE ×2 (09:21→10:48)
--- NOTE | 2018-03-09 09:26 | Emergency Department Note ---
Arrhythmia/Palpitations HPI - General Chief Complaint: Arrhythmia/Palpitations Stated Complaint: Elevated heart rate Time Seen by Provider: 03/09/18 09:21 Source: patient Mode of arrival: ambulatory Limitations: no limitations - History of Present Illness HPI Narrative: This patient returns emergency room in atrial flutter. He was admitted last week and they had some trouble controlling his rate. He is on amiodarone and they did use diltiazem treatment as well as a beta-floyd. This started up again last night. He has no chest pain shortness of breath or nausea. No history of coronary disease. He is followed by leisure travel agent Dr. Barroso and had an echo and a stress test last summer. - Related Data Home Medications Medication Instructions Recorded Confirmed Acetaminophen [Tylenol] 325 mg PO Q4HP PRN 03/02/18 03/09/18 Losartan [Cozaar] 25 mg PO DAILY 03/02/18 03/09/18 Naproxen (Pp) [Aleve 220Mg (Pp)] 220 mg PO Q6 03/02/18 03/09/18 traMADol [Ultram] 50 - 100 mg PO Q4HP PRN 03/02/18 03/09/18 Methocarbamol [Robaxin-750] 750 mg PO QIDP PRN 03/09/18 03/09/18 Previous Rx's Medication Instructions Recorded Amiodarone HCl [Cordarone] 200 mg PO BIDCC #90 tab 03/04/18 Diltiazem HCl [Diltiazem 24Hr Cd] 120 mg PO DAILY #90 cap.er.24h 03/04/18 Allergies Allergy/AdvReac Type Severity Reaction Status Date / Time No Known Drug Allergies Allergy Verified 03/09/18 09:11 Review of Systems All systems ED: reviewed and negative except as stated. Past Medical History - Past Medical History PMFSH Narrative: Home Medications Acetaminophen [Tylenol] 325 mg PO Q4HP PRN 03/02/18 [History Confirmed 03/09/18 Last Taken Unknown] Losartan [Cozaar] 25 mg PO DAILY 03/02/18 [History Confirmed 03/09/18 Last Taken Unknown] Naproxen (Pp) [Aleve 220Mg (Pp)] 220 mg PO Q6 03/02/18 [History Confirmed Last Taken Unknown] traMADol [Ultram] 50 - 100 mg PO Q4HP PRN 03/02/18 [History Confirmed 03/09/18 Last Taken Unknown] Amiodarone HCl [Cordarone] 200 mg PO BIDCC #90 tab 03/04/18 [Rx Confirmed Last Taken Unknown] Diltiazem HCl [Diltiazem 24Hr Cd] 120 mg PO DAILY #90 cap.er.24h 03/04/18 [Rx Confirmed 03/09/18 Last Taken Unknown] Medical history: Reports: atrial fibrillation, hypertension, other (Rheumatic fever) Surgical history ED: Reports: other ([place] teeth) - Social History smoking status: Never smoker Alcohol use: Reports: Occasionally (Wine) Drug use: Reports: none Physical Exam Limitations: no limitations General appearance: alert Head: atraumatic Eye: Present: normal appearance ENT: normal exam Neck: Present: normal inspection Chest: Present: normal inspection Respiratory: Present: normal lung sounds bilaterally Cardiovascular: Present: regular rate, tachycardia, normal heart sounds Abdominal: Present: soft. Absent: distention, tenderness Neurological: Present: alert Psychiatric: Present: normal affect Skin: Present: warm, dry Course Vital Signs Temperature 98.4 F 03/09/18 09:11 Pulse Rate 146 H 03/09/18 09:11 Respiratory Rate 20 03/09/18 09:11 Blood Pressure 160/115 03/09/18 09:11 Pulse Oximetry (%) 96 03/09/18 09:11 Temperature 98.4 F 03/09/18 09:11 Pulse Rate 136 H 03/09/18 10:15 Respiratory Rate 15 03/09/18 10:15 Blood Pressure 151/93 03/09/18 10:15 Pulse Oximetry (%) 92 03/09/18 10:15 Arrhythmia/Palpitations - [facility] Narrative Medical decision making narrative: This patient was given diltiazem 20 mg IV and started on a drip up to 50 mg in his heart rate remained at 140. I have initiated metoprolol. I discussed case with Dr. Mayer will admit him to the hospital. Dr. Barroso the leisure travel agent recommended a higher dose of amiodarone when he did his discharge. - Lab Data Lab results reviewed: Yes I reviewed the patient's lab results. Result diagrams: 03/09/18 09:26 03/09/18 09:26 Lab Results 03/09/18 03/09/18 03/09/18 Range/Units 09:26 09:26 09:26 WBC 10.1 (4.5-11.0) K/mcL RBC 4.80 (4.50-5.90) M/mcL Hgb 13.5 (13.5-16.5) g/dL Hct 42.0 (41.0-55.0) % MCV 87.5 (80.0-100.0) fL MCH 28.2 (26.0-34.0) pg MCHC 32.2 (31.0-36.0) g/dL RDW 16.2 H (11.5-14.5) % Plt Count 429 (140-440) K/mcL MPV 8.0 (7.4-10.4) fL Gran % 77.6 (38.0-78.0) % Lymph % (Auto) 10.2 L (15.5-49.0) % [place] % (Auto) 10.4 (1.0-12.0) % Eos % (Auto) 1.2 (0.0-7.0) % Baso % (Auto) 0.6 (0.0-2.0) % Gran # 7.8 (1.8-8.0) K/mcL Lymph # (Auto) 1.0 L (1.5-4.8) K/mcL [place] # (Auto) 1.0 H (0.1-0.9) K/mcL Eos # (Auto) 0.1 (0.0-0.7) K/mcL Baso # (Auto) 0.1 (0.0-0.3) K/mcL Sodium 136 (133-145) mmol/L Potassium 4.2 (3.3-5.1) mmol/L Chloride 98 (96-108) mmol/L Carbon Dioxide 20 L (22-30) mmol/L Anion Gap 18.0 H (8-16) BUN 21 (8-23) mg/dl Creatinine 0.9 (0.7-1.2) mg/dl GFR Calculation 91 Glucose 128 H (70-105) mg/dL Calcium 9.9 (8.6-10.4) mg/dl Total Bilirubin 0.3 (0.0-1.0) mg/dL AST 18 (0-37) U/l ALT 48 H (0-40) U/l Alkaline Phosphatase 102 (39-117) U/L Total Creatine Kinase 61 (24-195) IU/L CK-MB (CK-2) 1.6 (0-4.9) ng/ml Myoglobin 30 (28-72) ng/ml Troponin T < 0.01 (0-0.03) ng/ml Total Protein 8.0 (5.9-8.4) gm/dL Albumin 3.8 (3.2-5.2) gm/dL Globulin 4.2 H (2.2-3.7) gm/dL Albumin/Globulin Ratio 0.9 L (1.0-2.3) - Radiology Data Radiology results reviewed: Yes I reviewed the patient's radiology results. Disposition Pt seen by LEAF STAMPER/PA only: No Clinical Impression: Atrial flutter Disposition: Xfer As Inpt ([facility]) Condition: Good Time of Disposition: 11:33
[2018-03-09] MEDS ORDERED: DILTIAZEM 125 MG in DEXTROSE 5% IN WATER 100 ML IV SCH (09:30)
[2018-03-09] MEDS ORDERED: HYDROmorphone 2 MG/ML VIAL IV PRN (09:48)
--- NOTE | 2018-03-09 09:50 | XRay Report ---
INDICATION: Chest pain TECHNIQUE: AP chest x-ray,portable semiupright COMPARISON: None FINDINGS:Lungs are negative. No parenchymal infiltrate or mass. Heart size and vascularity are normal. Moira and mediastinum are negative. Edema or pulmonary congestion. No interval change IMPRESSION: 1. Negative AP chest x-ray 2. No interval change since 03/02/2018 Interpreted and Authenticated by: Billy Morales 03/09/18
[2018-03-09 10:00] LABS: Basophils # (Auto) 0.1 K/mcL (0.0-0.3); Basophils % (Auto) 0.6 % (0.0-2.0); Eosinophils # (Auto) 0.1 K/mcL (0.0-0.7); Eosinophils % (Auto) 1.2 % (0.0-7.0); Granulocytes % (Auto) 77.6 % (38.0-78.0); Lymphocytes % (Auto) 10.2 % (15.5-49.0); Mean Cell Volume 87.5 fL (80.0-100.0); Mean Corpuscular HGB Conc 32.2 g/dL (31.0-36.0); Mean Corpuscular Hemoglobin 28.2 pg (26.0-34.0); Monocytes % (Auto) 10.4 % (1.0-12.0); Platelet Count 429 K/mcL (140-440); Red Cell Distribution Width 16.2 % (11.5-14.5)
[2018-03-09 10:22] LABS: ALT/SGPT 48 U/l (0-40); Albumin 3.8 gm/dL (3.2-5.2); Albumin/Globulin Ratio 0.9 (1.0-2.3); Alkaline Phosphatase 102 U/L (39-117); Blood Urea Nitrogen 21 mg/dl (8-23); Creatine Kinase 61 IU/L (24-195); Creatine Kinase MB 1.6 ng/ml (0-4.9); Myoglobin 30 ng/ml (28-72)
[2018-03-09] MEDS: METOPROLOL TARTRATE 5 MG/5 ML VIAL IV SCH ×3 (11:07→11:39)
[2018-03-09] MEDS ORDERED: 0.9 % SODIUM CHLORIDE 1,000 ML IV SCH (11:15)
--- NOTE | 2018-03-09 12:18 | Internal Med History&Physical ---
Medical - H&P: HPI Patient information: Note initiated : 03/09/18 at 12:14 pm Service Date, if different from initiated Date: [] Patient: Billy Bland a 62 y/o M admitted on for Elevated heart rate. Chief Complaint: [] History of present illness: Mr. Bland is a 62 year old M Who presents the ED with tachycardia. Sinus tachycardia last week and is at the pain clinic is noted have an elevated heart rate received is a injection and then following the procedure at the end of the appointment he was still rapid thus sent to the ER. Was found to be in a flutter with 2-1. Started on diltiazem drip which was eventually added amio. This was also discussed with oscillograph technician Dr. Lindo. Patient subsequently converted patient was discharged on amiodarone 200 twice daily diltiazem XL 120 daily and his home losartan. Apparently patient does not tolerate beta-blockers very well so he was started on a calcium channel blockers instead of the beta-blockers. Patient had a stress test this year as well as echocardiogram. The stress test was okay per the patient's report. Chest x-ray is unremarkable. His chadsvasc score is 1 patient was started on aspirin last admission. The patient was routinely monitoring his heart rate this morning when he found to be elevated 140s-150. He called Dr. Zheng's office told him to take his morning medications and recheck it sometime later. He did take his medications but his heart rate never came down. He never experienced any chest pain or shortness of breath or lightheadedness dizziness. Came to the ER he was found to have a heart rates in the 130s-150. Started on diltiazem drip is currently running 100s. No recent illnesses no new complaints. Review of Systems: Positives as above . denies headache/fever/chills/nausea/vomiting/chest or abdominal pain/cough/dyspnea/diarrhea. Many 10 point review of systems reviewed negative Medical - H&P: PMH Medical history: Paroxysmal a flutter/fib Hypertension History of rheumatic fever Chronic low back pain Surgical history: Oral surgery Family history: Mother hypertension Father had emphysema Social history: Patient denies tobacco typically drinks a glass of wine a night but has not had anything to drink for a month lives at home with family Medical - H&P: Meds Home Medications Medication Instructions Recorded Confirmed Type Acetaminophen [Tylenol] 325 mg PO Q4HP PRN 03/02/18 03/09/18 History Losartan [Cozaar] 25 mg PO DAILY 03/02/18 03/09/18 History Naproxen (Pp) [Aleve 220Mg (Pp)] 220 mg PO Q6 03/02/18 03/09/18 History traMADol [Ultram] 50 - 100 mg PO Q4HP PRN 03/02/18 03/09/18 History Amiodarone HCl [Cordarone] 200 mg PO BIDCC #90 tab 03/04/18 03/09/18 Rx Diltiazem HCl [Diltiazem 24Hr Cd] 120 mg PO DAILY #90 cap.er.24h 03/04/18 Rx Methocarbamol [Robaxin-750] 750 mg PO QIDP PRN 03/09/18 03/09/18 History Allergies Allergy/AdvReac Type Severity Reaction Status Date / Time No Known Drug Allergies Allergy Verified 03/09/18 09:11 Medical - H&P: Exam - Constitutional Vitals: Temp Pulse Resp BP Pulse Ox 98.4 F 130 H 24 H 136/95 94 03/09/18 09:11 03/09/18 11:15 03/09/18 11:15 03/09/18 11:15 03/09/18 11:15 Exam: General: Alert, Awake, No acute Distress, obese Eyes/N/T: EOMI, PEERL, DMM Head/Neck: neck supple, normocephalic atraumatic CV: Irregular regular with a heart rate around 100 , No murmurs, normal s1/s2 Pulm: Clear b/l, no wheezing/rhonchi/rales Abd: soft, nontender, +BS x4 Ext: no clubbing/cyanosis/edema Neuro: Alert, no focal deficits, moves all extremities, CN 2-12 grossly intact, symmetrical strength b/l upper/lower, sensations intact b/l upper/lower Skin: warm/dry Medical - H&P: Reslt - Labs CBC & Chem 7: 03/09/18 09:26 03/09/18 09:26 Labs: Short CBC 03/09/18 Range/Units 09:26 WBC 10.1 (4.5-11.0) K/mcL Hgb 13.5 (13.5-16.5) g/dL Hct 42.0 (41.0-55.0) % Plt Count 429 (140-440) K/mcL BMP 03/09/18 09:26 Sodium 136 Potassium 4.2 Chloride 98 Carbon Dioxide 20 L BUN 21 Creatinine 0.9 Glucose 128 H Calcium 9.9 Cardiac Enzymes 03/09/18 03/09/18 Range/Units 09:26 09:26 Total Creatine Kinase 61 (24-195) IU/L CK-MB (CK-2) 1.6 (0-4.9) ng/ml Troponin T < 0.01 (0-0.03) ng/ml Liver Function 03/09/18 Range/Units 09:26 Total Bilirubin 0.3 (0.0-1.0) mg/dL AST 18 (0-37) U/l ALT 48 H (0-40) U/l Alkaline Phosphatase 102 (39-117) U/L Albumin 3.8 (3.2-5.2) gm/dL - Impressions EKG with 2-1 flutter Medical - H&P: A/P - Narrative A/P Narrative: A: *A flutter/fib: -Currently controlled on diltiazem drip -CHADSVASC=1 -follows with Dr. Lindo -had echo & stress test done this year *Hypertension: *Obesity: * P: -Wean off the drip to oral diltiazem. Increase amiodarone to 400bid -Case was discussed with his oscillograph technician who recommended simply increase his amiodarone -Adjust PO diltiazem accordingly -Aspirin -hold ARB for now -f/u outpt with Dr. lindo -ppx: Lovenox
[2018-03-09] MEDS ORDERED: METHOCARBAMOL 750 MG TABLET PO PRN ×2 (13:59→19:49)
[2018-03-09] MEDS ORDERED: ACETAMINOPHEN 325 MG TABLET PO PRN (13:59)
[2018-03-09] MEDS ORDERED: HYDROcodone/APAP 5/325MG TABLET PO PRN (13:59)
[2018-03-09] MEDS ORDERED: METOPROLOL TARTRATE 5 MG/5 ML VIAL IV PRN (13:59)
[2018-03-09] MEDS ORDERED: ONDANSETRON 4 MG/2 ML VIAL IV PRN (13:59)
[2018-03-09] MEDS: 0.9 % SODIUM CHLORIDE 10 ML SYRINGE IV SCH ×2 (14:04→22:00)
[2018-03-09] MEDS ORDERED: ENOXAPARIN 40 MG/0.4 ML SYRINGE SQ ONE (14:30)
[2018-03-09] MEDS ORDERED: AMIODARONE 150 MG in DEXTROSE 5% IN WATER 50 ML IV ONE (14:47)
[2018-03-09] MEDS ORDERED: DIGOXIN 500 MCG/2 ML AMPUL IV ONE (18:09)
[2018-03-09] MEDS: DILTIAZEM 125 MG in DEXTROSE 5% IN WATER 100 ML IV SCH (18:24)
[2018-03-09] MEDS ORDERED: oxyCODONE HCL 5 MG TABLET PO PRN (19:44)
[2018-03-09] MEDS: AMIODARONE HCL 200 MG TABLET PO SCH (19:59)
[2018-03-09] MEDS: ACETAMINOPHEN 500 MG TABLET PO SCH (20:43)
[2018-03-09] MEDS: traMADol 50 MG TABLET PO PRN (21:27)
[2018-03-10] MEDS ORDERED: oxyCODONE HCL 5 MG TABLET PO ONE ×2 (00:40→04:43)
[2018-03-10] MEDS ORDERED: DILTIAZEM 125 MG/25 ML VIAL IV ONE (00:43)
[2018-03-10] MEDS: ACETAMINOPHEN 500 MG TABLET PO SCH ×4 (00:47→12:34)
[2018-03-10] MEDS: oxyCODONE HCL 5 MG TABLET PO PRN ×4 (00:48→12:34)
[2018-03-10] MEDS: traMADol 50 MG TABLET PO PRN ×3 (01:41→12:34)
[2018-03-10] MEDS: METHOCARBAMOL 500 MG TABLET PO PRN ×2 (01:41→08:37)
[2018-03-10 05:24] LABS: Basophils # (Auto) 0 K/mcL (0.0-0.3); Basophils % (Auto) 0.6 % (0.0-2.0); Eosinophils # (Auto) 0.2 K/mcL (0.0-0.7); Eosinophils % (Auto) 2.2 % (0.0-7.0); Lymphocytes # (Auto) 1.6 K/mcL (1.5-4.8); Lymphocytes % (Auto) 19.1 % (15.5-49.0); Mean Cell Volume 87.6 fL (80.0-100.0); Mean Corpuscular HGB Conc 32.4 g/dL (31.0-36.0); Mean Corpuscular Hemoglobin 28.3 pg (26.0-34.0); Monocytes # (Auto) 1.1 K/mcL (0.1-0.9); Monocytes % (Auto) 13.1 % (1.0-12.0); Platelet Count 379 K/mcL (140-440); RBC 4.41 M/mcL (4.50-5.90)
[2018-03-10 05:53] LABS: ALT/SGPT 40 U/l (0-40); Albumin 3.2 gm/dL (3.2-5.2); Albumin/Globulin Ratio 0.8 (1.0-2.3); Alkaline Phosphatase 90 U/L (39-117); Bilirubin,Direct < 0.2 mg/dL (0.0-0.3); Blood Urea Nitrogen 22 mg/dl (8-23); Gamma Glutamyl Transpeptidase 62 U/L (8-61); Uric Acid 4.3 mg/dL (2.5-8.0)
[2018-03-10] MEDS: 0.9 % SODIUM CHLORIDE 10 ML SYRINGE IV SCH ×2 (06:27→12:35)
[2018-03-10] MEDS: DILTIAZEM 125 MG in DEXTROSE 5% IN WATER 100 ML IV SCH (06:41)
--- NOTE | 2018-03-10 07:05 | Internal Med Progress Note ---
Medical - PN: Subj Patient information: Note initiated : 03/10/18 at 7:01 am Service Date, if different from initiated Date: [] Patient: Billy Bland a 62 y/o M admitted on 03/09/18 for Elevated heart rate. Chief Complaint: [] Interval history: Mr. Bland is a 62 year old M Who presents the ED with tachycardia. Sinus tachycardia last week and is at the pain clinic is noted have an elevated heart rate received is a injection and then following the procedure at the end of the appointment he was still rapid thus sent to the ER. Was found to be in a flutter with 2-1. Started on diltiazem drip which was eventually added amio. This was also discussed with life insurance agent Dr. Barroso. Patient subsequently converted patient was discharged on amiodarone 200 twice daily diltiazem XL 120 daily and his home losartan. Apparently patient does not tolerate beta-blockers very well so he was started on a calcium channel blockers instead of the beta-blockers. Patient had a stress test this year as well as echocardiogram. The stress test was okay per the patient's report. Chest x-ray is unremarkable. His chadsvasc score is 1 patient was started on aspirin last admission. The patient was routinely monitoring his heart rate this morning when he found to be elevated 140s-150. He called Dr. Zheng's office told him to take his morning medications and recheck it sometime later. He did take his medications but his heart rate never came down. He never experienced any chest pain or shortness of breath or lightheadedness dizziness. Came to the ER he was found to have a heart rates in the 130s-150. Started on diltiazem drip is currently running 100s. No recent illnesses no new complaints. 03/10 Converted last night to normal sinus rhythm. Feeling good no complaints. Family requesting outpatient PT OT. Oxycodone worked better than his tramadol for his back pain which is a relatively new medical problem for him. He does follow the pain clinic and is currently receiving injections. Discussed with him the higher dose of amiodarone other medications remain the same except for his losartan can be taken at 50 and blood pressure monitored. Patient follow- up with Dr. Zheng - Constitutional Vitals: Vital Signs Temp Pulse Resp BP Pulse Ox 97.5 F 77 15 134/98 95 03/10/18 04:51 03/10/18 04:51 03/10/18 04:51 03/10/18 04:51 03/10/18 04:51 Period Temp Pulse Resp BP Sys/Temple Pulse Ox Last 24 Hr 97.5 F-100.6 F 30-147 11-33 111-162/67-128 90-100 Intake and Output 03/09/18 03/10/18 03/10/18 21:59 05:59 13:59 Intake Total 1505 / 1505 1133 / 1133 Output Total 125 / 125 525 / 525 Balance 1380 / 1380 608 / 608 Weight 109.543 kg Intake & Output: Intake & Output 03/09/18 03/10/18 03/10/18 21:59 05:59 13:59 Intake Total 1505 / 1505 1133 / 1133 Output Total 125 / 125 525 / 525 Balance 1380 / 1380 608 / 608 Weight 109.543 kg Intake: IV 1205 / 1205 73 / 73 Cordarone 150 mg In Dextrose 5% 53 / 53 in Water 50 ml @ 300 mls/hr IV ONCE ONE Rx#:[id number] Cardizem 125 mg In Dextrose 5% 115 / 115 63 / 63 in Water 100 ml @ 5 MG/HR 5 mls /hr IV Q12H [facility] Rx#:[id number] Oral 300 / 300 1060 / 1060 Output: Void Amount 125 / 125 525 / 525 # of times incontinent of urine 0 / 0 Other: Urine Appearance Clear Urine Color Pale Bright Yellow Urine Odor Normal Stool Size Large Stool Color Brown Stool Consistency Formed # Voids 1 # Bowel Movements 1 Exam: General: Alert, Awake, No acute Distress, obese Eyes/N/T: EOMI, Head/Neck: neck supple, CV: RRR, No murmurs, normal s1/s2 Pulm: Clear b/l, no wheezing/rhonchi/rales Abd: soft, nontender, +BS x4 Ext: no clubbing/cyanosis/edema Neuro: Alert, no focal deficits, moves all extremities, Skin: warm/dry Medical - PN: Obj Da - Labs CBC & Chem 7: 03/10/18 03:45 03/10/18 03:45 Labs: Abnormal Lab Results 03/10/18 03/10/18 03/09/18 03:45 03:45 09:26 RBC 4.41 L Hgb 12.5 L Hct 38.6 L RDW 16.0 H Lymph % (Auto) [place] % (Auto) 13.1 H Lymph # (Auto) [place] # (Auto) 1.1 H Carbon Dioxide 21 L 20 L Anion Gap 18.0 H Glucose 128 H GGT 62 H ALT 48 H Globulin 3.9 H 4.2 H Albumin/Globulin Ratio 0.8 L 0.9 L 03/09/18 09:26 RBC Hgb Hct RDW 16.2 H Lymph % (Auto) 10.2 L [place] % (Auto) Lymph # (Auto) 1.0 L [place] # (Auto) 1.0 H Carbon Dioxide Anion Gap Glucose GGT ALT Globulin Albumin/Globulin Ratio Meds: Medications Acetaminophen (Tylenol) 500 mg PO Q4 [facility] Last Admin: 03/10/18 04:49 Dose: 500 mg Amiodarone HCl (Cordarone) 400 mg PO BID [facility] Last Admin: 03/09/18 19:59 Dose: 400 mg Aspirin (Aspirin) 81 mg CHEWED DAILY [facility] Diltiazem HCl (Cardizem Cd) 120 mg PO DAILY [facility] Enoxaparin Sodium (Lovenox) 40 mg SQ DAILY [facility] Diltiazem HCl 125 mg/ Dextrose 125 mls @ 5 mls/hr IV Q12H [facility]; Protocol Last Admin: 03/10/18 06:41 Dose: Not Given Methocarbamol (Robaxin) 1,000 mg PO QIDP PRN PRN Reason: Muscle Spasm Last Admin: 03/10/18 01:41 Dose: 1,000 mg Metoprolol Tartrate (Lopressor) 5 mg IV Q2M PRN PRN Reason: for HR>110 Last Admin: 03/09/18 18:24 Dose: 5 mg Ondansetron HCl (Zofran) 4 mg IV Q4HP PRN PRN Reason: Nausea And Vomiting Oxycodone HCl (Roxicodone) 5 mg PO Q4HP PRN PRN Reason: PAIN LEVEL 3-6 Last Admin: 03/10/18 04:48 Dose: 5 mg Sodium Chloride (Saline Flush) 10 ml IV Q8 [facility] Last Admin: 03/10/18 06:27 Dose: 10 ml Tramadol HCl (Ultram) 50 mg PO Q4HP PRN PRN Reason: Pain Last Admin: 03/10/18 01:41 Dose: 50 mg Medical - PN: A/P - Time Spent With Patient Total time spent is greater than 50% in coordination of care (as documented) at patient's floor/unit and/or counseling patient: - Narrative A/P Narrative: A: *A flutter/fib: converted to NSR last night -CHADSVASC=1 -follows with Dr. Barroso -had echo & stress test done this year *Hypertension: *Obesity: * P: -continue oral diltiazem and amiodarone to 400bid -Case was discussed with his life insurance agent who recommended simply increase his amiodarone, f/u outpt -Adjust PO diltiazem accordingly -Aspirin -restart ARB -f/u outpt with Dr. barroso -ppx: Lovenox Medical - PN: Qual - Stroke Symptom Onset Unknown: No - VTE Deep Vein Thrombosis/Pulmonary Embolism Present on Admission: No
--- NOTE | 2018-03-10 08:28 | Discharge Summary ---
Medical - DS: Prov Patient information: Note initiated : 03/10/18 at 8:25 am Service Date, if different from initiated Date: [] Patient: Billy Bland 62 y/o M admitted on 03/09/18 for Elevated heart rate. Chief Complaint: [] Date of admission: 03/09/18 13:34 Discharge date: 03/10/18 Consults: 03/09/18 Consult to Physician [CONS] Stat Comment: Consulting Provider: Rob Collins Reason For Exam: Physician to Consult 03/09/18 10:58 Consult to Physician [CONS] Stat Comment: Consulting Provider: Juan Barroso Reason For Exam: Physician to Consult Medical - DS: Meds - Discharge Medications Prescriptions: Amiodarone HCl [Cordarone] 400 mg PO BID #30 tab Aspirin 81 mg CHEWED DAILY #30 tab.chew Losartan [Cozaar] 50 mg PO HS #15 tab oxyCODONE HCL [Roxicodone] 5 mg PO Q4HP PRN #25 tab PRN Reason: Pain Level 3-6 Active and Home Medications: Home Medications traMADol [Ultram] 50 mg PO Q4HP PRN MDD 150 MG 03/02/18 [History Confirmed 03/09 Last Taken Unknown] Amiodarone HCl [Cordarone] 200 mg PO BIDCC #90 tab 03/04/18 [Rx Confirmed Last Taken Unknown] Diltiazem HCl [Diltiazem 24Hr Cd] 120 mg PO DAILY #90 cap.er.24h 03/04/18 [Rx Confirmed 03/09/18 Last Taken Unknown] Acetaminophen [Tylenol Extra Strength] 1,500 mg PO BID 03/09/18 [History Confirmed 03/09/18 Last Taken Unknown] Losartan [Cozaar] 100 mg PO HS 03/09/18 [History Confirmed 03/09/18 Last Taken Unknown] Methocarbamol [Robaxin-750] 750 mg PO TIDP PRN 03/09/18 [History Confirmed 03/09 Last Taken Unknown] Naproxen Sodium 440 mg PO BID 03/09/18 [History Confirmed 03/09/18 Last Taken Unknown] Home Medications Diltiazem HCl [Diltiazem 24Hr Cd] 120 mg PO DAILY #90 cap.er.24h 03/04/18 [Rx Confirmed 03/09/18 Last Taken Unknown] Acetaminophen [Tylenol Extra Strength] 1,500 mg PO BID 03/09/18 [History Confirmed 03/09/18 Last Taken Unknown] Methocarbamol [Robaxin-750] 750 mg PO TIDP PRN 03/09/18 [History Confirmed 03/09 Last Taken Unknown] Naproxen Sodium 440 mg PO BID 03/09/18 [History Confirmed 03/09/18 Last Taken Unknown] Amiodarone HCl [Cordarone] 400 mg PO BID #30 tab 03/10/18 [Rx Last Taken Unknown ] Aspirin 81 mg CHEWED DAILY #30 tab.chew 03/10/18 [Rx Last Taken Unknown] Losartan [Cozaar] 50 mg PO HS #15 tab 03/10/18 [Rx Last Taken Unknown] oxyCODONE HCL [Roxicodone] 5 mg PO Q4HP PRN #25 tab 03/10/18 [Rx Last Taken Unknown] Amiodarone to be titrated down per grocery checker Medical - DS: Hosp Hospital course: Mr. Bland is a 62 year old M Mr. Bland is a 62 year old M Who presents the ED with tachycardia. Sinus tachycardia last week and is at the pain clinic is noted have an elevated heart rate received is a injection and then following the procedure at the end of the appointment he was still rapid thus sent to the ER. Was found to be in a flutter with 2-1. Started on diltiazem drip which was eventually added amio. This was also discussed with grocery checker Dr. Barroso. Patient subsequently converted patient was discharged on amiodarone 200 twice daily diltiazem XL 120 daily and his home losartan. Apparently patient does not tolerate beta-blockers very well so he was started on a calcium channel blockers instead of the beta-blockers. Patient had a stress test this year as well as echocardiogram. The stress test was okay per the patient's report. Chest x-ray is unremarkable. His chadsvasc score is 1 patient was started on aspirin last admission. The patient was routinely monitoring his heart rate this morning when he found to be elevated 140s-150. He called Dr. Zheng's office told him to take his morning medications and recheck it sometime later. He did take his medications but his heart rate never came down. He never experienced any chest pain or shortness of breath or lightheadedness dizziness. Came to the ER he was found to have a heart rates in the 130s-150. Started on diltiazem drip is currently running 100s. No recent illnesses no new complaints. 03/10 Converted last night to normal sinus rhythm. Feeling good no complaints. Family requesting outpatient PT OT. Oxycodone worked better than his tramadol for his back pain which is a relatively new medical problem for him. He does follow the pain clinic and is currently receiving injections. Discussed with him the higher dose of amiodarone other medications remain the same except for his losartan can be taken at 50 and blood pressure monitored. Patient follow- up with Dr. Zheng. Stable for discharge Discharge diagnosis: A flutter/fib Secondary discharge diagnosis: Hypertension obesity - Time Spent with Patient Total time spent providing and/or coordinating discharge services: Greater than 30 minutes Medical - DS: Exam - Constitutional Vitals: Vital Signs Temp Pulse Pulse Resp BP BP BP 03/10/18 08:00 86 17 03/10/18 04:51 97.5 F 77 15 134/98 03/10/18 02:01 78 22 125/88 03/10/18 01:01 82 22 136/94 03/10/18 00:01 97.8 F 46 L 21 126/67 03/10/18 00:00 43 L 21 03/09/18 23:01 51 L 20 116/80 03/09/18 22:01 30 L 25 H 124/73 03/09/18 21:01 104 H 19 136/82 03/09/18 20:51 102 H 20 127/75 03/09/18 20:41 40 L 24 H 135/78 03/09/18 20:32 22 162/81 03/09/18 20:11 61 18 146/82 03/09/18 20:01 21 134/77 03/09/18 19:51 90 22 138/85 03/09/18 19:41 37 L 26 H 143/82 03/09/18 19:31 56 L 16 131/78 03/09/18 19:21 93 H 15 125/78 03/09/18 19:11 100.6 F H 63 22 136/82 03/09/18 18:59 92 H 21 142/84 03/09/18 18:41 98 H 20 111/73 03/09/18 18:34 105 H 33 H 136/83 03/09/18 18:32 125 H 16 03/09/18 18:31 139 H 16 125/96 03/09/18 18:01 131 H 29 H 128/85 03/09/18 17:33 28 H 126/88 03/09/18 17:01 125 H 27 H 123/101 03/09/18 16:31 134 H 22 141/91 03/09/18 16:01 131 H 22 139/94 03/09/18 16:00 98.9 F 20 131/83 03/09/18 15:31 131 H 23 H 131/83 03/09/18 15:01 17 135/97 03/09/18 14:36 19 03/09/18 14:31 129 H 25 H 117/98 03/09/18 14:01 133 H 30 H 139/96 03/09/18 13:59 98.6 F 16 140/99 03/09/18 13:53 27 H 140/99 03/09/18 13:34 98.6 F 133 H 18 140/99 03/09/18 11:15 130 H 24 H 136/95 03/09/18 11:00 139 H 27 H 141/114 03/09/18 10:45 147 H 21 134/102 03/09/18 10:30 139 H 15 155/98 03/09/18 10:15 136 H 15 151/93 03/09/18 10:00 140 H 11 L 140/100 03/09/18 09:45 146 H 15 139/100 03/09/18 09:30 147 H 21 159/128 03/09/18 09:11 98.4 F 146 H 20 160/115 Pulse Ox 03/10/18 08:00 95 03/10/18 04:51 95 03/10/18 02:01 94 03/10/18 01:01 94 03/10/18 00:01 95 03/10/18 00:00 92 03/09/18 23:01 90 03/09/18 22:01 93 03/09/18 21:01 93 03/09/18 20:51 92 18 20:41 92 18 20:32 03/09/18 20:11 94 03/09/18 20:01 03/09/18 19:51 92 03/09/18 19:41 94 03/09/18 19:31 95 03/09/18 19:21 94 03/09/18 19:11 96 03/09/18 18:59 94 03/09/18 18:41 100 03/09/18 18:34 96 03/09/18 18:32 96 03/09/18 18:31 95 03/09/18 18:01 96 03/09/18 17:33 95 03/09/18 17:01 90 03/09/18 16:31 93 03/09/18 16:01 94 03/09/18 16:00 91 03/09/18 15:31 93 03/09/18 15:01 03/09/18 14:36 03/09/18 14:31 94 03/09/18 14:01 93 03/09/18 13:59 93 03/09/18 13:53 03/09/18 13:34 96 03/09/18 11:15 94 03/09/18 11:00 92 03/09/18 10:45 95 03/09/18 10:30 91 03/09/18 10:15 92 03/09/18 10:00 93 03/09/18 09:45 95 03/09/18 09:30 03/09/18 09:11 96 Intake and Output 03/09/18 03/10/18 03/10/18 21:59 05:59 13:59 Intake Total 1505 / 1505 1133 / 1133 Output Total 125 / 125 525 / 525 Balance 1380 / 1380 608 / 608 Intake: IV 1205 / 1205 73 / 73 Cordarone 150 mg In Dextrose 5% 53 / 53 in Water 50 ml @ 300 mls/hr IV ONCE ONE Rx#:[id number] Cardizem 125 mg In Dextrose 5% 115 / 115 63 / 63 in Water 100 ml @ 5 MG/HR 5 mls /hr IV Q12H [facility] Rx#:[id number] Oral 300 / 300 1060 / 1060 Output: Void Amount 125 / 125 525 / 525 # of times incontinent of urine 0 / 0 Other: Urine Appearance Clear Clear Urine Color Pale Bright Yellow Bright Yellow Urine Odor Normal Normal Stool Size Large Stool Color Brown Stool Consistency Formed # Voids 1 # Bowel Movements 1 Weight 109.543 kg Medical - DS: Data Labs on day of discharge: Labs from last 24 hours 03/10/18 03/10/18 03/09/18 03:45 03:45 09:26 WBC 8.2 RBC 4.41 L Hgb 12.5 L Hct 38.6 L MCV 87.6 MCH 28.3 MCHC 32.4 RDW 16.0 H Plt Count 379 MPV 8.0 Gran % 65.0 Lymph % (Auto) 19.1 [place] % (Auto) 13.1 H Eos % (Auto) 2.2 Baso % (Auto) 0.6 Gran # 5.3 Lymph # (Auto) 1.6 [place] # (Auto) 1.1 H Eos # (Auto) 0.2 Baso # (Auto) 0 Sodium 136 Potassium 4.1 Chloride 102 Carbon Dioxide 21 L Anion Gap 13.0 BUN 22 Creatinine 0.9 GFR Calculation 91 Glucose 94 Uric Acid 4.3 Calcium 9.4 Phosphorus 3.8 Magnesium 2.1 2.1 Total Bilirubin 0.2 Direct Bilirubin < 0.2 GGT 62 H AST 15 ALT 40 Alkaline Phosphatase 90 Lactate Dehydrogenase 141 Total Creatine Kinase CK-MB (CK-2) Myoglobin Troponin T Total Protein 7.1 Albumin 3.2 Globulin 3.9 H Albumin/Globulin Ratio 0.8 L Triglycerides 114 03/09/18 03/09/18 03/09/18 09:26 09:26 09:26 WBC 10.1 RBC 4.80 Hgb 13.5 Hct 42.0 MCV 87.5 MCH 28.2 MCHC 32.2 RDW 16.2 H Plt Count 429 MPV 8.0 Gran % 77.6 Lymph % (Auto) 10.2 L [place] % (Auto) 10.4 Eos % (Auto) 1.2 Baso % (Auto) 0.6 Gran # 7.8 Lymph # (Auto) 1.0 L [place] # (Auto) 1.0 H Eos # (Auto) 0.1 Baso # (Auto) 0.1 Sodium 136 Potassium 4.2 Chloride 98 Carbon Dioxide 20 L Anion Gap 18.0 H BUN 21 Creatinine 0.9 GFR Calculation 91 Glucose 128 H Uric Acid Calcium 9.9 Phosphorus Magnesium Total Bilirubin 0.3 Direct Bilirubin GGT AST 18 ALT 48 H Alkaline Phosphatase 102 Lactate Dehydrogenase Total Creatine Kinase 61 CK-MB (CK-2) 1.6 Myoglobin 30 Troponin T < 0.01 Total Protein 8.0 Albumin 3.8 Globulin 4.2 H Albumin/Globulin Ratio 0.9 L Triglycerides Medical - DS: A/P - Patient/Caregiver Discharge Instructions Activity: increase activity as tolerated Diet: Cardiac Additional Instructions: Follow-up with PCP in 3-7 days - Follow up Plan Follow up with: Juan Barroso MD [Physician] - Disposition: Home, Self-Care Prognosis: Good Rehab Potential: Fair Medical - DS: Qual - VTE Deep Vein Thrombosis/Pulmonary Embolism Present on Admission: No
[2018-03-10] MEDS: AMIODARONE HCL 200 MG TABLET PO SCH (08:37)
[2018-03-10] MEDS ORDERED: DILTIAZEM 120 MG CAP.XL.24H PO SCH (09:00)
[2018-03-10] MEDS ORDERED: ASPIRIN 81 MG TAB.CHEW CHEWED SCH (09:00)
[2018-03-10] MEDS ORDERED: ENOXAPARIN 40 MG/0.4 ML SYRINGE SQ SCH (09:00)
[2018-03-10] MEDS ORDERED: DILTIAZEM 125 MG in DEXTROSE 5% IN WATER 100 ML IV PRN (11:15)
[2018-03-10] MEDS ORDERED: LOSARTAN 50 MG TABLET PO SCH (21:00)
== END 2018-03-10 13:40 | disposition home or self-care (01) ==
LOC: ED 09:10 → ICU 13:34 → INTOOBSV 13:34 → ICU 13:38
PROVIDERS: ADMIT Internal Medicine; ATTEND Internal Medicine
CPT/HCPCS: 99217; 99219; J0282; J1170; J1650; J7030; J7060